=== PATIENT | female | born 1980 | race Caucasian/White ===

== ENCOUNTER 2016-10-12 21:36 | Emergency (ER) | payer BC | END 2016-10-13 00:30 | disposition home or self-care (01) | LOC: D.ER 21:36 | DX: K04.7 Periapical abscess without sinus (principal); K08.89 Other specified disorders of teeth and supporting structures; K05.10 Chronic gingivitis, plaque induced; F17.200 Nicotine dependence, unspecified, uncomplicated ==

== ENCOUNTER 2017-04-26 13:28 | Day surgery (SDC) | payer BC ==
[~2017-04-26] VITALS: Ht 165.1 cm; Wt 63.6 kg
--- NOTE | ~2017-04-26 | OP ---
PATIENT NAME: KISHA OBRIEN MEDICAL RECORD: [id number] :84 LOCATION:D.OPS ADMISSION DATE: SURGEON: HALEY CHAVEZ MD DATE OF OPERATION: 04/27/2017 PREOPERATIVE DIAGNOSIS: Open fracture, displaced at the right thumb. POSTOPERATIVE DIAGNOSIS: Open fracture, displaced at the right thumb. PROCEDURES: 1. Excisional debridement of the right thumb to include skin, subcutaneous tissue, portions of fat, fascia, muscle and bone. 2. Percutaneous pinning of the thumb phalanx. 3. Nail bed repair. SURGEON: Haley Chavez MD. ANESTHESIA: General. INTRAOPERATIVE COMPLICATIONS: None. SUMMARY OF PATHOLOGIC FINDINGS: The patient had a tuft fracture that was open with fragmentation. After closure, it was amenable to pinning across the DIP joint. OPERATIVE SUMMARY IN DETAIL: After obtaining the appropriate preoperative orthopedic surgery consent as well as anesthetic consultation, evaluation and clearance, the patient was brought to the operating room and placed on the table in supine position. After adequate general laryngeal mask airway was administered, tourniquet was placed about the proximal aspect of the upper extremity. Right upper extremity was prepped and draped in routine sterile fashion. The arm was elevated and exsanguinated, tourniquet inflated to 350 mmHg. Care was first taken to debride the area of open skin flap. This was copiously irrigated. A portion of the nail bed itself was lacerated. This was repaired with 7-0 catgut, the nail having already been lost. After this was completely cleansed and all wounds were closed, the thumb was pinned across the fracture into the DIP joint under direct fluoroscopy. Having completed this, sterile dressings were applied. Tourniquet was deflated. The patient was awakened, taken to recovery room in stable condition. All final needle and sponge counts were correct. TRANSINT:[id number] Voice Confirmation ID: [id number] DOCUMENT ID: [id number] HALEY CHAVEZ MD CC: [id number] DICTATION DATE: 05/27/17 1439 [facility] TRAPPER: 05/27/17 2235 [facility] 04/27/17 [id number] [place] [address]
[2017-04-26 16:36] LABS: BASOPHILS 0.2 % (0-2); EOSINOPHILS 0.3 % (0-7); HEMATOCRIT 43.5 % (36.0-48.0); HEMOGLOBIN 15.3 g/dL (12-16); IMMATURE GRANULOCYTES 0.2 % (0-5); LYMPHOCYTES 20.4 % (15-50); MCH 34.1 pg (26.0-34.0); MCHC 35.2 g/dL (31.0-37.0); MCV 96.9 fL (80.0-100.0); MEAN PLATELET VOLUME 11.9 fL (7.4-10.4); MONOCYTES 5.2 % (2-11); NEUTROPHILS 73.7 % (40-80); PLATELET COUNT 251 10x3/uL (130-400); RBC 4.49 10x6/uL (4.00-5.40); RDW 12.6 % (11.5-14.5)
[2017-04-26 16:53] LABS: ALBUMIN 4.3 g/dL (3.4-5.0); ALKALINE PHOSPHATASE 77 U/L (46-116); ALT (SGPT) 15 U/L (10-68); BILIRUBIN - TOTAL 0.58 mg/dL (0.2-1.3); CALC OSMOLALITY 275 mosm/kg (275-300); CALCIUM 8.8 mg/dL (8.5-10.1); CARBON DIOXIDE 26.7 mmol/L (21.0-32.0); CHLORIDE - SERUM 102 mmol/L (98-107); CREATININE - SERUM 0.9 mg/dL (0.6-1.3); GLUCOSE 79 mg/dL (74-106); POTASSIUM - SERUM 3.8 mmol/L (3.5-5.1); PROTEIN - SERUM 8.1 g/dL (6.4-8.2); SODIUM 138 mmol/L (136-145); UREA NITROGEN 16 mg/dL (7-18); eGFR NON AFRICAN AMERICAN 75 mL/min (90-120)
[2017-04-27] VITALS: BP 103/64
--- NOTE | 2017-04-27 00:33 | NUR ---
1999)PAPER WORK REC'D. FROM ER STAFF.PT. OUT OF ROOM FOR 45MINUTES.RETURNED TO RM.2044 STATES WAS OUTSIDE SMOKING.DRSG. RT. 1ST FINGER INTACT WITH SOME DK. DRY BLOODY DRAINAGE NOTED.DENIES DECREASE IN SENSATION GOOD RADIAL PULSE,WIGGLES WITHOUT DIFFICULTY
[2017-04-27 02:59] VITALS: BP 128/78; Ht 165.1 cm; Wt 63.6 kg
[2017-04-27 04:00] VITALS: BP 115/66
--- NOTE | 2017-04-27 08:30 | NUR ---
PT SEEN EARLIER THIS AM. NPO FOR SURGERY LATER THIS AM. CONSENTS SIGNED. BATH GIVEN EARILER. ENCOURAGED PT TO STAY ON FLOOR AND NO SMOKING DUE TO SURGERY. PAIN PILL GIVEN FOR PAIN RIGHT THUMB-DRESSING REINFORECED. FAMILY AT BEDSIDE. CALL LIGHT IN REACH
[2017-04-27 08:42] VITALS: BP 111/62
--- NOTE | 2017-04-27 12:00 | NUR ---
PATIENT SITTING ON BED AT THIS TIME. IV INTACT. STATED SHE WANTS TO GET UP AND WALK. EXPLAINED TO PATIENT THAT SHE CAN GET UP AND WALK IN THE HALLWAYS, BUT NOT ALLOWED TO GO OUTSIDE AND SMOKE. VERBALIZED UNDERSTANDING. FAMILY AT BEDSIDE. CALL LIGHT WITHIN REACH.
--- NOTE | 2017-04-27 14:15 | NUR ---
PATIENT TO OR.
[2017-04-27 16:19] VITALS: BP 126/77
--- NOTE | 2017-04-27 16:20 | NUR ---
RECIEVED BACK TO ROOM 2211 FROM RECOVERY ROOM VIA BED. VSS. FAMILY IN ROOM. CALL LIGHT IN REACH.
--- NOTE | 2017-04-27 16:30 | NUR ---
PATIENT NAUSEATED IN BATHROOM VOMITTING UP MUCUS AND YELLOW STOMACH ACID. HELPED PATIENT BACK TO BED. PATIENT IV WAS PULLED OUT. RESTARTED X 2 STICKS. ZOFRAN GIVEN AND ANTIBIOTIC INFUSING. GAVE PATIENT AT BLUE BAG FOR EMESIS AND ASKED HER NOT TO GET UP JUST TO USE THE BAG. PATIENT EYES CLOSED NOW RESTING QUIETLY. CALL LIGHT WITHIN REACH.
[2017-04-27] MEDS ORDERED: BACTRIM DS TABL1 TAB PO (17:01)
[2017-04-27] MEDS ORDERED: PERCOCET 10/3251 TA1 PO (17:02)
--- NOTE | 2017-04-27 17:15 | NUR ---
PATIENT IN BED EATING CHIPS. BROUGHT HER CLEAR LIQUIDS AND EXPLAINED NOT TO EAT ANY REGULAR FOOD UNTIL NOT NAUSEATED ANYMORED. VS STABLE. CALL LIGHT WITHIN REACH. FAMILY AT BEDSIDE.
--- NOTE | 2017-04-27 17:45 | NUR ---
PATIENT STILL NAUSEATED. UP TO BATHROOM DRY HEAVING. IV INTACT. VS MACHINE OFF DUE TO HER BEING UP TO BR. FAMILY AT SIDE. CALL LIGHT WITHIN REACH.
--- NOTE | 2017-04-27 18:55 | NUR ---
PATIENT IN BED WITH NO COMPLAINTS. STATED SHE IS STILL SICK AT HER STOMACH. EXPLAINED THAT WHEN SHE IS FEELING BETTER SHE CAN BE DISCHARGED. VERBALIZED UNDERSTANDING. CALL LIGHT WITHIN REACH.
--- NOTE | 2017-04-27 21:10 | NUR ---
David) MET IN HALLWAY WITH GOING OUT TO SMOKE DRSG DRY AND INTACTRIGHT HAND.DENIES NAUSEA AT PRESENT TIME.
--- NOTE | 2017-04-27 21:46 | NUR ---
DISCHARGE INSTRUCTIONS ALONG WITH PAPER WORK TWO RX.FOR PERCOCET AND BACTRIUM GIVEN IV DC'D. INSTRUCTED TO LEAVE DRSG IS IF NOTICES TEMP. DRAINAGE INCREASE PAIN DECREASE IN SENSATION NOTIFY VOICES UNDERSTANDING
--- NOTE | 2017-04-27 22:31 | NUR ---
DC'D.HOME WITH VIA WHEELCHAIR
== END 2017-04-27 22:36 | disposition home or self-care (01) ==
LOC: OBSVTIME → D.ER 13:28 → D.OPS 13:28 → D.ER 17:26 → OBSVTIME 17:26 → D.MS 17:26 → EDSTATUS 04-27 14:00 → D.OPS 04-27 22:36 → D.MS 04-27 22:36
PROVIDERS: Nurse Practitioner Acute Care
DX: S62.521A Displaced fracture of distal phalanx of right thumb, initial encounter for closed fracture (principal); W20.8XXA Other cause of strike by thrown, projected or falling object, initial encounter; Z01.810 Encounter for preprocedural cardiovascular examination; Z01.811 Encounter for preprocedural respiratory examination; Z01.812 Encounter for preprocedural laboratory examination

== ENCOUNTER 2017-09-29 20:20 | Inpatient (IN) | payer MEDICAID ==
[~2017-09-29] VITALS: Ht 165.1 cm; Wt 63.5 kg
--- NOTE | ~2017-09-29 | OP ---
PATIENT NAME: KISHA OBRIEN MEDICAL RECORD: [id number] :84 LOCATION:D.MS [id number] ADMISSION DATE:09/30/17 SURGEON: HALEY CHAVEZ MD DATE OF OPERATION: 09/30/2017 PREOPERATIVE DIAGNOSIS: Osteomyelitis of the right thumb phalanx. POSTOPERATIVE DIAGNOSIS: Osteomyelitis of the right thumb phalanx. PROCEDURE: Excisional debridement to include skin and subcutaneous tissue as well as portions of bone. SURGEON: Haley Chavez MD ANESTHESIA: General. INTRAOPERATIVE COMPLICATIONS: None. SUMMARY OF PATHOLOGIC FINDINGS: Consistent with the preoperative radiographs, the patient had osteomyelitis of the right distal thumb phalanx. In lieu of amputation, attempts at salvage were undertaken. OPERATIVE SUMMARY IN DETAIL: After obtaining the appropriate preoperative orthopedic surgery consent as well as anesthetic consultation, evaluation, and clearance, the patient was brought to the operating room and placed on the operating table in supine position. After general laryngeal mask airway was administered, tourniquet was placed about the proximal aspect of the right upper extremity. Right upper extremity was then prepped and draped in routine sterile fashion. A midline incision was made on the medial aspect of the thumb. Purulence was immediately noted and cultured. Copious curettage was then done to try and rid the bone of any type of purulence and bulb syringe was also utilized. The cavity was then packed with quarter-inch Nu Gauze. Sterile dressings were applied. The patient was awakened and taken to the recovery room in stable condition. All final needle and sponge counts were correct. TRANSINT:[id number] Voice Confirmation ID: [id number] DOCUMENT ID: [id number] 10/08/2017 Corrected left to right per dmm. SCOTT schmitt MD, JAMES KEVIN at 1213 CC: [id number] DICTATION DATE: 10/04/17 1338 ACCOUNTANT BUDGET: 10/04/17 1728 DIS IN 10/04/17 [facility] [address] [place] [address]
[~2017-09-29 20:20] MED LIST: BACTRIM DS TABL1 TAB PO; PERCOCET 10/3251 TA1 PO
[2017-09-30 01:28] LABS: HEMATOCRIT 39.9 % (36.0-48.0); HEMOGLOBIN 13.8 g/dL (12-16); MCHC 34.6 g/dL (31.0-37.0); MCV 95.5 fL (80.0-100.0); MEAN PLATELET VOLUME 11.9 fL (7.4-10.4); PLATELET COUNT 202 10x3/uL (130-400); RBC 4.18 10x6/uL (4.00-5.40); RDW 13.6 % (11.5-14.5); WBC 11.4 10x3/uL (4.8-10.8)
[2017-09-30 01:36] LABS: INR 0.95 (0.85-1.17); PROTIME 12.3 SECONDS (11.6-15.0)
[2017-09-30 01:42] LABS: ALBUMIN 3.7 g/dL (3.4-5.0); ALKALINE PHOSPHATASE 81 U/L (46-116); ALT (SGPT) 20 U/L (10-68); BILIRUBIN - TOTAL 0.28 mg/dL (0.2-1.3); CALC OSMOLALITY 270 mosm/kg (275-300); CALCIUM 9.1 mg/dL (8.5-10.1); CARBON DIOXIDE 27.1 mmol/L (21.0-32.0); CHLORIDE - SERUM 102 mmol/L (98-107); CREATININE - SERUM 0.7 mg/dL (0.6-1.3); GLUCOSE 84 mg/dL (74-106); PROTEIN - SERUM 7.3 g/dL (6.4-8.2); SODIUM 136 mmol/L (136-145); UREA NITROGEN 12 mg/dL (7-18); eGFR NON AFRICAN AMERICAN > 90 mL/min (90-120)
[2017-09-30 01:43] LABS: POTASSIUM - SERUM 4.9 mmol/L (3.5-5.1)
[2017-09-30 02:07] LABS: EOSINOPHILS 2 % (0-7); LYMPHOCYTES 59 % (15-50); MONOCYTES 2 % (2-11); NEUTROPHILS 36 % (40-80); PLATELET ESTIMATE NORMAL
[2017-09-30 08:00] VITALS: BP 120/078
[2017-09-30 09:58] VITALS: BP 120/78; BMI 23.3
[2017-09-30 12:00] VITALS: BP 125/58
[2017-09-30 15:38] LABS: ERYTHROCYTE SEDIMENTATION RATE 40 mm/hr (0-20)
[2017-09-30 16:00] VITALS: BP 122/064
[2017-09-30 21:29] VITALS: BP 114/68
[2017-09-30 21:59] LABS: APPEARANCE HAZY (CLEAR); BILIRUBIN NEGATIVE (NEGATIVE); COLOR YELLOW (YELLOW); GLUCOSE NEGATIVE (NEGATIVE); KETONE NEGATIVE (NEGATIVE); NITRITE NEGATIVE (NEGATIVE); PROTEIN NEGATIVE (NEGATIVE); UROBILINOGEN NORMAL (NORMAL)
[2017-09-30 22:02] LABS: BACTERIA FEW /hpf (NONE SEEN); RED CELLS - URINE 0-5 /hpf (0-5); WHITE CELLS - URINE OCC /hpf (0-5)
[2017-10-01 00:44] VITALS: BP 100/48
[2017-10-01 05:26] VITALS: BP 116/70
[2017-10-01 06:05] LABS: BASOPHILS 0.3 % (0-2); EOSINOPHILS 3.3 % (0-7); HEMATOCRIT 39.1 % (36.0-48.0); HEMOGLOBIN 12.8 g/dL (12-16); IMMATURE GRANULOCYTES 0.2 % (0-5); LYMPHOCYTES 55.8 % (15-50); MCH 31.9 pg (26.0-34.0); MCHC 32.7 g/dL (31.0-37.0); MEAN PLATELET VOLUME 12.5 fL (7.4-10.4); MONOCYTES 6.7 % (2-11); NEUTROPHILS 33.7 % (40-80); PLATELET COUNT 198 10x3/uL (130-400); RBC 4.01 10x6/uL (4.00-5.40); WBC 11.1 10x3/uL (4.8-10.8)
[2017-10-01 06:07] LABS: MCV 97.5 fL (80.0-100.0)
[2017-10-01 06:10] LABS: HCG SERUM NEGATIVE (NEGATIVE)
[2017-10-01 06:20] LABS: ALKALINE PHOSPHATASE 70 U/L (46-116); ALT (SGPT) 16 U/L (10-68); CALC OSMOLALITY 284 mosm/kg (275-300); CALCIUM 8.1 mg/dL (8.5-10.1); CARBON DIOXIDE 27.5 mmol/L (21.0-32.0); CHLORIDE - SERUM 110 mmol/L (98-107); CREATININE - SERUM 0.8 mg/dL (0.6-1.3); GLUCOSE 78 mg/dL (74-106); POTASSIUM - SERUM 4.5 mmol/L (3.5-5.1); SODIUM 143 mmol/L (136-145); UREA NITROGEN 15 mg/dL (7-18); eGFR NON AFRICAN AMERICAN 86 mL/min (90-120)
[2017-10-01 08:25] VITALS: BP 106/64
[2017-10-01 10:07] VITALS: Ht 165.1 cm; Wt 63.5 kg
[2017-10-01 13:33] VITALS: BP 122/56
[2017-10-01 21:43] VITALS: BP 103/54
[2017-10-02 00:10] VITALS: BP 89/45
[2017-10-02 04:21] VITALS: BP 121/70
[2017-10-02 06:29] LABS: BASOPHILS 0.1 % (0-2); EOSINOPHILS 0.1 % (0-7); HEMATOCRIT 39.1 % (36.0-48.0); HEMOGLOBIN 13.3 g/dL (12-16); IMMATURE GRANULOCYTES 0.3 % (0-5); LYMPHOCYTES 25.8 % (15-50); MCH 32.7 pg (26.0-34.0); MCV 96.1 fL (80.0-100.0); MEAN PLATELET VOLUME 12.5 fL (7.4-10.4); NEUTROPHILS 67.7 % (40-80); PLATELET COUNT 233 10x3/uL (130-400); RBC 4.07 10x6/uL (4.00-5.40); RDW 13.4 % (11.5-14.5)
[2017-10-02 06:32] LABS: WBC 19.6 10x3/uL (4.8-10.8)
[2017-10-02 07:09] LABS: ALBUMIN 3.4 g/dL (3.4-5.0); ALKALINE PHOSPHATASE 72 U/L (46-116); ALT (SGPT) 16 U/L (10-68); BILIRUBIN - TOTAL 0.25 mg/dL (0.2-1.3); CALC OSMOLALITY 282 mosm/kg (275-300); CALCIUM 8.6 mg/dL (8.5-10.1); CARBON DIOXIDE 22.3 mmol/L (21.0-32.0); CHLORIDE - SERUM 106 mmol/L (98-107); CREATININE - SERUM 0.8 mg/dL (0.6-1.3); GLUCOSE 111 mg/dL (74-106); PROTEIN - SERUM 6.7 g/dL (6.4-8.2); SODIUM 141 mmol/L (136-145); UREA NITROGEN 14 mg/dL (7-18); eGFR NON AFRICAN AMERICAN 86 mL/min (90-120)
[2017-10-02 07:11] LABS: POTASSIUM - SERUM 3.8 mmol/L (3.5-5.1)
[2017-10-02 08:34] VITALS: BP 115/71
[2017-10-02 12:05] VITALS: BP 118/64
[2017-10-02 16:02] LABS: APPEARANCE CLEAR (CLEAR); BILIRUBIN NEGATIVE (NEGATIVE); COLOR YELLOW (YELLOW); GLUCOSE NEGATIVE (NEGATIVE); KETONE NEGATIVE (NEGATIVE); NITRITE NEGATIVE (NEGATIVE); PROTEIN NEGATIVE (NEGATIVE); SPECIFIC GRAVITY 1.025 (1.005-1.020); UROBILINOGEN NORMAL (NORMAL)
[2017-10-02 16:04] LABS: BACTERIA FEW /hpf (NONE SEEN); EPITHELIAL CELLS 0-5 /hpf (0-5); MUCUS >1+ /lpf (NONE SEEN); WHITE CELLS - URINE 0-5 /hpf (0-5)
[2017-10-02 16:07] VITALS: BP 130/73
[2017-10-03 00:43] VITALS: BP 107/60
[2017-10-03 05:02] VITALS: BP 110/66
[2017-10-03 05:51] LABS: BASOPHILS 0.4 % (0-2); HEMATOCRIT 36.7 % (36.0-48.0); HEMOGLOBIN 12.2 g/dL (12-16); IMMATURE GRANULOCYTES 0.2 % (0-5); LYMPHOCYTES 49.7 % (15-50); MCH 32.6 pg (26.0-34.0); MCHC 33.2 g/dL (31.0-37.0); MEAN PLATELET VOLUME 12.1 fL (7.4-10.4); MONOCYTES 4.9 % (2-11); NEUTROPHILS 42.8 % (40-80); RBC 3.74 10x6/uL (4.00-5.40)
[2017-10-03 06:05] LABS: MCV 98.1 fL (80.0-100.0); PLATELET COUNT 174 10x3/uL (130-400); WBC 11.3 10x3/uL (4.8-10.8)
[2017-10-03 06:24] LABS: ALBUMIN 2.7 g/dL (3.4-5.0); ALKALINE PHOSPHATASE 59 U/L (46-116); CALCIUM 8.1 mg/dL (8.5-10.1); CARBON DIOXIDE 23.2 mmol/L (21.0-32.0); CHLORIDE - SERUM 108 mmol/L (98-107); CREATININE - SERUM 0.7 mg/dL (0.6-1.3); GLUCOSE 85 mg/dL (74-106); PROTEIN - SERUM 5.4 g/dL (6.4-8.2); SODIUM 140 mmol/L (136-145); eGFR NON AFRICAN AMERICAN > 90 mL/min (90-120)
[2017-10-03 06:27] LABS: ALT (SGPT) 23 U/L (10-68); CALC OSMOLALITY 276 mosm/kg (275-300); POTASSIUM - SERUM 4.5 mmol/L (3.5-5.1); UREA NITROGEN 10 mg/dL (7-18)
[2017-10-03 09:30] VITALS: BP 125/74
[2017-10-03 12:07] VITALS: BP 117/70
[2017-10-03 20:34] VITALS: BP 129/80
[2017-10-03 23:53] VITALS: BP 128/74
[2017-10-04 04:29] VITALS: BP 124/70
[2017-10-04 04:55] LABS: BASOPHILS 0.2 % (0-2); EOSINOPHILS 3.1 % (0-7); HEMOGLOBIN 12.8 g/dL (12-16); IMMATURE GRANULOCYTES 0.2 % (0-5); LYMPHOCYTES 53.3 % (15-50); MCH 43.1 pg (26.0-34.0); MCHC 43.7 g/dL (31.0-37.0); MCV 98.7 fL (80.0-100.0); MEAN PLATELET VOLUME 12.4 fL (7.4-10.4); MONOCYTES 5.9 % (2-11); NEUTROPHILS 37.3 % (40-80); PLATELET COUNT 148 10x3/uL (130-400); RDW 13.6 % (11.5-14.5); WBC 9.3 10x3/uL (4.8-10.8)
[2017-10-04 05:04] LABS: HEMATOCRIT 29.3 % (36.0-48.0); RBC 2.97 10x6/uL (4.00-5.40)
[2017-10-04 05:31] LABS: ALBUMIN 2.8 g/dL (3.4-5.0); ALKALINE PHOSPHATASE 63 U/L (46-116); CALC OSMOLALITY 278 mosm/kg (275-300); CALCIUM 8.5 mg/dL (8.5-10.1); CARBON DIOXIDE 26.8 mmol/L (21.0-32.0); CHLORIDE - SERUM 106 mmol/L (98-107); CREATININE - SERUM 0.8 mg/dL (0.6-1.3); GLUCOSE 82 mg/dL (74-106); POTASSIUM - SERUM 4.9 mmol/L (3.5-5.1); PROTEIN - SERUM 5.5 g/dL (6.4-8.2); SODIUM 141 mmol/L (136-145); UREA NITROGEN 11 mg/dL (7-18); eGFR NON AFRICAN AMERICAN 86 mL/min (90-120)
[2017-10-04 05:32] LABS: ALT (SGPT) 30 U/L (10-68); BILIRUBIN - TOTAL 0.08 mg/dL (0.2-1.3)
[2017-10-04] MEDS ORDERED: VANCOMYCIN 1 GM/1 G1 IV (07:50)
[2017-10-04] MEDS ORDERED: PERCOCET 10/3251 TA1 PO (07:50)
[2017-10-04 08:44] VITALS: BP 156/94
[2017-10-04 12:34] VITALS: BP 119/66
== END 2017-10-04 16:31 | disposition home health service (06) | DRG 513 ==
LOC: D.ER 20:20 → D.MS 09-30 06:40 → D.M3 09-30 06:40 → D.MS 10-01 15:29
PROVIDERS: Emergency Medicine; Orthopaedic Surgery
PROC: 0PDR0ZZ Extraction of Right Thumb Phalanx, Open Approach (ICD-10-PCS; principal; 2017-10-01 10:45)
PROC: 02HV33Z Insertion of Infusion Device into Superior Vena Cava, Percutaneous Approach (ICD-10-PCS; 2017-10-04)
PROC: B548ZZA Ultrasonography of Superior Vena Cava, Guidance (ICD-10-PCS; 2017-10-04)
DX: M86.9 Osteomyelitis, unspecified (principal); F17.203 Nicotine dependence unspecified, with withdrawal; L03.011 Cellulitis of right finger; S62.521S Displaced fracture of distal phalanx of right thumb, sequela; X58.XXXS Exposure to other specified factors, sequela

== ENCOUNTER → 2017-10-07 20:51 | Outpatient (CLI) | payer MEDICAID ==
[2017-10-01 10:07] VITALS: BMI 23.2
[~2017-10-07 20:51] MED LIST changes: +VANCOMYCIN 1 GM/1 G1 IV
[2017-10-07 21:36] LABS: CALC OSMOLALITY 275 mosm/kg (275-300); CALCIUM 8.5 mg/dL (8.5-10.1); CARBON DIOXIDE 27.5 mmol/L (21.0-32.0); CHLORIDE - SERUM 101 mmol/L (98-107); CREATININE - SERUM 0.9 mg/dL (0.6-1.3); GLUCOSE 97 mg/dL (74-106); SODIUM 138 mmol/L (136-145); UREA NITROGEN 13 mg/dL (7-18); VANCOMYCIN - TROUGH 6.3 ug/mL (10.0-20.0); eGFR NON AFRICAN AMERICAN 75 mL/min (90-120)
== END | disposition home or self-care (01) ==
LOC: D.LABREF 20:51
PROVIDERS: Orthopaedic Surgery
DX: M86.9 Osteomyelitis, unspecified (principal)

== ENCOUNTER → 2017-10-11 13:44 | Outpatient (CLI) | payer MEDICAID ==
[2017-10-01 10:07] VITALS: BMI 23.2
[2017-10-11 15:14] LABS: BASOPHILS 0.3 % (0-2); EOSINOPHILS 1.4 % (0-7); HEMATOCRIT 42.6 % (36.0-48.0); HEMOGLOBIN 14.4 g/dL (12-16); IMMATURE GRANULOCYTES 0.2 % (0-5); LYMPHOCYTES 31.1 % (15-50); MCH 32.7 pg (26.0-34.0); MCHC 33.8 g/dL (31.0-37.0); MCV 96.6 fL (80.0-100.0); MEAN PLATELET VOLUME 12.4 fL (7.4-10.4); MONOCYTES 7.2 % (2-11); NEUTROPHILS 59.8 % (40-80); PLATELET COUNT 207 10x3/uL (130-400); RBC 4.41 10x6/uL (4.00-5.40); RDW 13.7 % (11.5-14.5); WBC 10.8 10x3/uL (4.8-10.8)
[2017-10-11 15:36] LABS: CREATININE - SERUM 0.7 mg/dL (0.6-1.3); VANCOMYCIN - TROUGH 6.1 ug/mL (10.0-20.0)
[2017-10-11 16:43] LABS: ERYTHROCYTE SEDIMENTATION RATE 30 mm/hr (0-20)
== END | disposition home or self-care (01) ==
LOC: D.LABREF 13:44
PROVIDERS: Student in an Organized Health Care Education/Training Program
DX: Z79.2 Long term (current) use of antibiotics (principal); S62.632A Displaced fracture of distal phalanx of right middle finger, initial encounter for closed fracture; L03.90 Cellulitis, unspecified; Z45.2 Encounter for adjustment and management of vascular access device

== ENCOUNTER → 2017-10-18 16:16 | Outpatient (CLI) | payer MEDICAID ==
[2017-10-01 10:07] VITALS: BMI 23.2
[2017-10-18 16:45] LABS: BASOPHILS 0.4 % (0-2); EOSINOPHILS 2.3 % (0-7); HEMATOCRIT 39.2 % (36.0-48.0); HEMOGLOBIN 13.4 g/dL (12-16); IMMATURE GRANULOCYTES 0.2 % (0-5); MCH 32.8 pg (26.0-34.0); MCHC 34.2 g/dL (31.0-37.0); MCV 95.8 fL (80.0-100.0); NEUTROPHILS 61.1 % (40-80); PLATELET COUNT 224 10x3/uL (130-400); RBC 4.09 10x6/uL (4.00-5.40); RDW 13.6 % (11.5-14.5); WBC 10.3 10x3/uL (4.8-10.8)
[2017-10-18 17:09] LABS: CREATININE - SERUM 0.7 mg/dL (0.6-1.3)
[2017-10-18 18:11] LABS: ERYTHROCYTE SEDIMENTATION RATE 32 mm/hr (0-20)
== END | disposition home or self-care (01) ==
LOC: D.LABREF 16:16
PROVIDERS: Orthopaedic Surgery
DX: T84.69XA Infection and inflammatory reaction due to internal fixation device of other site, initial encounter (principal); Z45.2 Encounter for adjustment and management of vascular access device; L03.011 Cellulitis of right finger; Z51.81 Encounter for therapeutic drug level monitoring; Z79.899 Other long term (current) drug therapy

== ENCOUNTER → 2017-10-25 18:12 | Outpatient (CLI) | payer MEDICAID ==
[2017-10-01 10:07] VITALS: BMI 23.2
[2017-10-25 20:04] LABS: BASOPHILS 0.3 % (0-2); EOSINOPHILS 3.5 % (0-7); HEMATOCRIT 39.8 % (36.0-48.0); HEMOGLOBIN 13.3 g/dL (12-16); LYMPHOCYTES 39.7 % (15-50); MCH 32.3 pg (26.0-34.0); MCHC 33.4 g/dL (31.0-37.0); MCV 96.6 fL (80.0-100.0); MEAN PLATELET VOLUME 12.4 fL (7.4-10.4); MONOCYTES 7.5 % (2-11); PLATELET COUNT 208 10x3/uL (130-400); RBC 4.12 10x6/uL (4.00-5.40); RDW 13.4 % (11.5-14.5); WBC 6.8 10x3/uL (4.8-10.8)
[2017-10-25 20:24] LABS: CREATININE - SERUM 0.8 mg/dL (0.6-1.3); UREA NITROGEN 8 mg/dL (7-18); VANCOMYCIN - TROUGH 15.9 ug/mL (10.0-20.0)
[2017-10-25 20:37] LABS: C-REACTIVE PROTEIN < 0.2 mg/dL (0.0-0.9)
[2017-10-25 21:09] LABS: ERYTHROCYTE SEDIMENTATION RATE 10 mm/hr (0-20)
== END | disposition home or self-care (01) ==
LOC: D.LABREF 18:12
PROVIDERS: Orthopaedic Surgery
DX: T84.69XA Infection and inflammatory reaction due to internal fixation device of other site, initial encounter (principal); L03.011 Cellulitis of right finger; Z45.2 Encounter for adjustment and management of vascular access device; Z51.81 Encounter for therapeutic drug level monitoring

== ENCOUNTER 2017-11-13 15:48 | Emergency (ER) | payer MEDICAID ==
[2017-10-01 10:07] VITALS: BMI 23.2
== END 2017-11-13 17:24 | disposition home or self-care (01) ==
LOC: D.ER 15:48
DX: L03.011 Cellulitis of right finger (principal); F17.200 Nicotine dependence, unspecified, uncomplicated